=== PATIENT | male | born 1990 | race African-American/Black ===

== ENCOUNTER 2017-06-08 13:17 | Emergency (ER) | payer SELFPAY ==
[~2017-06-08] VITALS: Ht 175.3 cm; Wt 70.3 kg
[2017-06-08 13:45] VITALS: BP 140/94
--- NOTE | 2017-06-08 14:32 | PHYS DOC ---
Past Medical History Past Medical History: Hypertension, Other Additional Past Medical Histor: testicular torsion Past Surgical History: Other Additional Past Surgical Histo: left ankle Alcohol Use: Occasionally Drug Use: Marijuana Adult General Chief Complaint Chief Complaint: TESTICULAR PAIN OR INJURY HPI HPI Patient is a 27 year old male, sexually active, presents with complaints of right testicular pain that started last night while he was walking. No known trauma. he's had a previous history of testicular torsion at the age of 12. Patient denies any discharge or dysuria. Patient states he was able to go to sleep last night and this morning awoke pain free but while he was at work he started feeling the pain again. He states Tylenol was able to control his pain. At the time of the evaluation. Patient's pain is 4 out of 10, he declines pain medication in the ED. Review of Systems Review of Systems Constitutional: Denies fever or chills [] GI: Denies abdominal pain, nausea, vomiting, bloody stools or diarrhea [] : Denies dysuria or hematuria or discharge Musculoskeletal: Denies back pain or joint pain [] Integument: Denies rash or skin lesions [] Endocrine: Denies polyuria or polydipsia [] Allergies Allergies Allergies Coded Allergies Type Severity Reaction Last Updated Verified No Known Drug Allergies 06/08/17 No Physical Exam Physical Exam Constitutional: Well developed, well nourished, no acute distress, non-toxic appearance. Smiling and joking during exam HENT: Normocephalic, atraumatic, Eyes: EOMI, conjunctiva normal, no discharge. [] Neck: Normal range of motion, trachea midline Cardiovascular:Heart rate regular rhythm, no murmur normal perfusion Lungs & Thorax: Bilateral breath sounds clear to auscultation [] Abdomen: Bowel sounds normal, soft, no tenderness, no masses, no pulsatile masses. [] : No masses, no lesions, no discharge, no evidence of hernia, no swelling of the testicle, no evidence of torsion, cremasteric reflex is intact. Skin: Warm, dry, no erythema, no rash. [] Back: No tenderness, no CVA tenderness. [] Extremities: No tenderness, no cyanosis, no clubbing, ROM intact, no edema. [] Neurologic: Alert and oriented X 3, no focal deficits, ambulates in the ED without difficulty with normal gait Psychologic: Affect normal, judgement normal, mood normal. [] Current Patient Data Vital Signs Vital Signs Date Time Temp Pulse Resp B/P (MAP) Pulse Ox O2 Delivery O2 Flow Rate FiO2 06/08/17 13:45 98.6 72 18 140/94 (109) 99 Room Air 98.6 EKG EKG [] Radiology/Procedures Radiology/Procedures [] Course & Med Decision Making Course & Med Decision Making Pertinent Labs and Imaging studies reviewed. (See chart for details) Patient looks very well and is in no major distress in the ED. Clinically, the patient does not appear to have a testicular torsion. However his symptomatology could be due to an infectious process or inflammation or intermittent torsion. We will elevate the patient by doing an ultrasound and reassess him clinically. Unless there are concerning ultrasound findings I believe the patient is stable for outpatient follow-up and reevaluation. 1515 patientresting comfortably and in no distress. I have given the patient a copy of the ultrasound results to discuss with his PCP. Strict return precautions have been given to the patient who voices understanding. Patient is to follow up as directed Nuha Disclaimer Nuha Disclaimer This electronic medical record was generated, in whole or in part, using a voice recognition dictation system. Departure Departure Impression: Primary Impression: Hydrocele in adult Additional Impressions: Varicocele present on ultrasound of scrotum Testicular discomfort Disposition: 01 HOME, SELF-CARE Condition: STABLE Referrals: NO PCP (PCP) Scripts Acetaminophen With Codeine (ACETAMINOPHEN-COD #3 TABLET) 1 Each Tablet 1 TAB PO PRN Q6HRS Y for PAIN for 2 Days, #8 TAB Prov: Javy RIVERA MD 06/08/17 Naproxen (NAPROXEN) 375 Mg Tablet 1 TAB PO BID, #14 TAB 5 Refills Prov: Javy RIVERA MD 06/08/17 Problem Qualifiers Javy RIVERA MD Jun 08, 2017 14:32
--- NOTE | 2017-06-08 14:38 | RAD ---
Scrotal ultrasound, 06/08/2017: History: Right testicular pain The right testicle measures 4.0 x 2.3 x 1.9 cm while the left testicle measures 3.6 x 2.5 x 1.6 cm. There is no evidence of a testicular mass. There is symmetric blood flow within the testicles. No epididymal abnormality is seen. A small varicocele is noted on the left. There is a small hydrocele on the right. IMPRESSION: 1. No testicular abnormality is detected. 2. Small left varicocele. 3. Small right hydrocele
[2017-06-08] MEDS ORDERED: ACET1TAB33 PO (15:21)
[2017-06-08] MEDS ORDERED: NAPR375T3 PO (15:21)
== END 2017-06-08 15:40 | disposition home or self-care (01) ==
LOC: ER 13:17
DX: N43.3 Hydrocele, unspecified (principal); I86.1 Scrotal varices; I10 Essential (primary) hypertension; F12.10 Cannabis abuse, uncomplicated
CPT/HCPCS: 76870; 99284-25

== ENCOUNTER 2018-05-20 20:27 | Emergency (ER) | payer OTHER | END 2018-05-20 21:01 | disposition home or self-care (01) | LOC: ER 20:27 | DX: H60.91 Unspecified otitis externa, right ear (principal); K00.6 Disturbances in tooth eruption | CPT/HCPCS: 99283 ==

== ENCOUNTER 2021-07-18 10:56 | Emergency (ER) | payer MEDICAID, OTHER ==
[~2021-07-18] VITALS: Ht 175.3 cm; Wt 77.0 kg
[~2021-07-18 10:56] MED LIST: ACET1TAB33 PO; NAPR-695 PO; NEOM10DR32 AD
[2021-07-18 11:34] VITALS: BP 144/82
--- NOTE | 2021-07-18 11:45 | PHYS DOC ---
Past Medical History Past Medical History: No Pertinent History Additional Past Medical Histor: testicular torsion Past Surgical History: No Surgical History Additional Past Surgical Histo: left ankle Smoking Status: Current Every Day Smoker Alcohol Use: Occasionally Drug Use: None General Adult EDM: Chief Complaint: ABSCESS HPI: HPI: Patient is a 31 year old male with no significant medical history who presents today complaining of a spider bite on the left groin region, patient states he noted the bite 2 days ago and applied ice last night to it and this morning it was draining pus. He states he never saw the spider bite him. Patient denies any fever. Review of Systems: Review of Systems: Constitutional: Denies fever or chills. [] GI: Denies abdominal pain, nausea, vomiting, bloody stools or diarrhea. [] : Denies dysuria. [] Musculoskeletal: Denies back pain or joint pain. [] Integument: Reports spider bite to the left groin Neurologic: Denies headache, focal weakness or sensory changes. [] Psychiatric: Denies depression or anxiety. [] Heart Score: C/O Chest Pain: N/A Risk Factors: Risk Factors: DM, Current or recent (<one month) smoker, HTN, HLP, family history of CAD, obesity. Risk Scores: Score 0 - 3: 2.5% MACE over next 6 weeks - Discharge Home Score 4 - 6: 20.3% MACE over next 6 weeks - Admit for Clinical Observation Score 7 - 10: 72.7% MACE over next 6 weeks - Early Invasive Strategies Allergies: Allergies: Allergies Coded Allergies Type Severity Reaction Last Updated Verified No Known Drug Allergies 06/08/17 No Physical Exam: PE: Constitutional: Well developed, well nourished, no acute distress, non-toxic appearance. [] Skin: Left pubic region with an indurated area roughly 0.5 x 0.5 with an open center draining yellow purulent material that patient himself was able to express out of the wound. The surrounding cellulitis and tenderness. Back: No tenderness, no CVA tenderness. [] Extremities: No tenderness, no cyanosis, no clubbing, ROM intact, no edema. [] Neurologic: Alert and oriented X 3, normal motor function, normal sensory function, no focal deficits noted. [] Psychologic: Affect normal, judgement normal, mood normal. [] Current Patient Data: Vital Signs: Vital Signs Date Time Temp Pulse Resp B/P (MAP) Pulse Ox O2 Delivery O2 Flow Rate FiO2 07/18/21 11:34 99.2 78 12 144/82 (103) 98 Room Air 99.2 EKG: EKG: [] Radiology/Procedures: Radiology/Procedures: [] Course & Med Decision Making: Course & Med Decision Making Pertinent Labs and Imaging studies reviewed. (See chart for details) This is a 31-year-old male patient presenting to the ED today complaining of an abscess to the left groin. Patient himself was able to drain the abscess. Tetanus is updated. Discharged on Bactrim. Wound care instructions and return precautions provided Dragon Disclaimer: Dragon Disclaimer: This electronic medical record was generated, in whole or in part, using a voice recognition dictation system. Departure Departure Impression: Primary Impression: Abscess of left groin Additional Impression: Cellulitis of left groin Disposition: HOME / SELF CARE / HOMELESS Condition: STABLE Referrals: NO PCP (PCP) follow up with your doctor in 1 week Patient Instructions: Abscess Additional Instructions: You have an abscess to your left groin that was drained in the emergency room. Please take the prescribed antibiotics until completed. Please apply warm compresses to the area twice a day for 7 days. You can take Tylenol or Motrin for pain. Come back to the ED at any point symptoms worsen Scripts Hydrocodone Bit/Acetaminophen (HYDROCODONE-APAP 5-325 ) 1 Tab Tablet 1 TAB PO PRN Q6HRS PRN for PAIN, #14 TAB 0 Refills Prov: KATELYN DICKEY SUBMARINE WORKER 07/18/21 Sulfamethoxazole/Trimethoprim (BACTRIM DS TABLET) 1 Each Tablet 1 TAB PO BID for 10 Days, #20 TAB 0 Refills Prov: KATELYN DICKEY SUBMARINE WORKER 07/18/21 KATELYN DICKEY SUBMARINE WORKER Jul 18, 2021 11:45
[2021-07-18] MEDS ORDERED: SULF1TAB24 PO (11:55)
[2021-07-18] MEDS ORDERED: HYDR-2761 PO (11:55)
[2021-07-18] MEDS ORDERED: DIPH,PERTUSS(ACELL),TET VAC/PF 0.5 ML SYRINGE. VAX IM ONE (12:00)
[2021-07-18] MEDS ORDERED: ACETAMINOPHEN 500 MG TABLET PO ONE (12:00)
[2021-07-18] MEDS ORDERED: SMZ/TMP 800/160MG TABLET. PO ONE (12:00)
== END 2021-07-18 12:05 | disposition home or self-care (01) ==
LOC: ER 10:56
DX: L02.214 Cutaneous abscess of groin (principal); L03.314 Cellulitis of groin; F17.200 Nicotine dependence, unspecified, uncomplicated
CPT/HCPCS: 90471; 90715; 99283

== ENCOUNTER 2022-01-11 16:52 | Emergency (ER) | payer MEDICAID ==
[~2022-01-11] VITALS: Ht 175.3 cm; Wt 76.5 kg
[~2022-01-11 16:52] MED LIST changes: +HYDR-2761 PO; +SULF1TAB24 PO
[2022-01-11] MEDS ORDERED: CYCL10TA19 PO (18:06)
[2022-01-11] MEDS ORDERED: DICL20GE TP (18:06)
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
[2022-01-11 18:30] VITALS: BP 140/85
--- NOTE | 2022-01-14 10:09 | EKG ---
[facility] [address] [place] [address] Test Date: 2022-01-11 Test Time: 18:30:46 Pat Name: KELLY RICKS Department: Room: Gender: M Water Sander: : 1990 Requested By: KAETLYN DICKEY Order Number: [id number] Reading MD: Measurements Intervals Leonard Rate: 67 P: 63 WA: 166 QRS: 58 QRSD: 90 T: 38 QT: 370 QTc: 394 Interpretive Statements SINUS RHYTHM OTHERWISE NORMAL ECG RI6.02 No previous ECG available for comparison
== END 2022-01-11 18:39 | disposition home or self-care (01) ==
LOC: ER 16:52
DX: S13.9XXA Sprain of joints and ligaments of unspecified parts of neck, initial encounter (principal); F17.200 Nicotine dependence, unspecified, uncomplicated; Y08.89XA Assault by other specified means, initial encounter; Y93.89 Activity, other specified; Y92.89 Other specified places as the place of occurrence of the external cause; Y99.8 Other external cause status
CPT/HCPCS: 93005; 99283

== ENCOUNTER 2022-02-08 17:40 | Emergency (ER) | payer MEDICAID ==
[~2022-02-08] VITALS: Ht 175.3 cm; Wt 76.7 kg
[~2022-02-08 17:40] MED LIST changes: +CYCL10TA19 PO; +DICL20GE TP
[2022-02-08 20:12] VITALS: BP 159/74
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
--- NOTE | 2022-02-08 21:04 | RAD ---
XR HUMERUS_LT 2 VIEWS 02/08/2022 8:41 PM INDICATION: Pain, injury COMPARISON: None available. TECHNIQUE: 2 views of the left humerus are provided. FINDINGS/ IMPRESSION: There is no acute fracture or dislocation. Joint spaces are maintained. Bone mineralization is within normal limits. Regional soft tissues are within normal limits. There is no soft tissue gas or osseou s erosion. No radiopaque foreign body. Electronically signed by: Suzi Waddell MD (02/08/2022 9:02 PM) [facility]
[2022-02-08] MEDS ORDERED: NAPR-514 PO (21:11)
[2022-02-08] MEDS: NAPROXEN 500 MG TABLET PO ONE (21:30)
== END 2022-02-08 21:35 | disposition home or self-care (01) ==
LOC: ER 17:40
DX: S40.022A Contusion of left upper arm, initial encounter (principal); F17.200 Nicotine dependence, unspecified, uncomplicated; W22.8XXA Striking against or struck by other objects, initial encounter; Y93.61 Activity, american tackle football; Y92.89 Other specified places as the place of occurrence of the external cause; Y99.8 Other external cause status
CPT/HCPCS: 73060; 99283